=== PATIENT | male | born 1995 | race Caucasian/White ===

== ENCOUNTER 2017-09-19 08:56 | Emergency (ER) | payer MEDICAID, OTHER ==
[2017-09-19 09:04] VITALS: BP 129/77
--- NOTE | 2017-09-19 09:12 | ED Physician Documentation ---
PD HPI URI - Stated complaint Stated Complaint: CONGESTED/BILAT EAR PX - Chief complaint Chief Complaint: Resp - History obtained from History obtained from: Patient - History of Present Illness Timing - onset: How many days ago (has had congestion and cough for days, and having ear pain today too.) Timing duration: Days Timing details: Gradual onset, Still present Associated symptoms: Fever, Ear pain, Nasal congestion, Sore throat, Swollen nodes, Dry cough Contributing factors: No: Sick contact Similar symptoms before: Has not had sx before Recently seen: Not recently seen Review of Systems Constitutional: reports: Fever, Chills, Myalgias Ears: reports: Ear pain Nose: reports: Rhinorrhea / runny nose, Congestion Throat: reports: Sore throat Respiratory: reports: Cough GI: denies: Vomiting, Diarrhea Skin: denies: Rash PD PAST MEDICAL HISTORY - Past Medical History Respiratory: Asthma - Past Surgical History Past Surgical History: No - Present Medications Home Medications: Ambulatory Orders Medication Instructions Recorded Confirmed Benzonatate [Tessalon] 100 mg PO TID PRN #25 capsule 09/19/17 Cephalexin [Keflex] 500 mg PO TID #20 capsule 09/19/17 Dexamethasone [Decadron] 4 mg PO DAILY #5 tablet 09/19/17 - Allergies Allergies/Adverse Reactions: Allergies Allergy/AdvReac Type Severity Reaction Status Date / Time No Known Drug Allergies Allergy Verified 09/19/17 09:04 - Social History Does the pt smoke?: Yes Smoking Status: Current some day smoker Does the pt drink ETOH?: Yes Does the pt have substance abuse?: Yes - Immunizations Immunizations are current?: Yes - POLST Patient has POLST: No PD ED PE NORMAL - General General: Alert and oriented X 3, No acute distress, Well developed/nourished - HEENT HEENT: Moist mucous membranes. No: Ears normal (left is good; right showing redness and bulging. Some wax in both ears but still can see to TMs. ) - Neck Neck: Supple, no meningeal sign, Other (mild anterior adenopathy) - Cardiac Cardiac: RRR, No murmur - Respiratory Respiratory: Clear bilaterally - Abdomen Abdomen: Soft, Non tender - Back Back: No CVA TTP - Derm Derm: Normal color, Warm and dry - Neuro Neuro: Alert and oriented X 3, No motor deficit, Normal speech Results - Vitals Vitals: Vital Signs - 24 hr 09/19/17 09:00 Temperature 36.9 C Heart Rate 86 Respiratory 14 Rate Blood Pressure 129/77 O2 Saturation 97 Oxygen O2 Source Room air PD MEDICAL DECISION MAKING - ED course Complexity details: considered differential, d/w patient Departure - Departure Disposition: 01 Home, Self Care Clinical Impression: Otitis media Qualifiers: Otitis media type: suppurative Chronicity: acute Laterality: right Recurrence: not specified as recurrent Spontaneous tympanic membrane rupture: without spontaneous rupture Qualified Code(s): H66.001 - Acute suppurative otitis media without spontaneous rupture of ear drum, right ear Upper respiratory infection Qualifiers: URI type: unspecified URI Qualified Code(s): J06.9 - Acute upper respiratory infection, unspecified Condition: Stable Record reviewed to determine appropriate education?: Yes Instructions: ED Upper Resp Infec Abx Tx, ED Otitis Media Acute Adult Prescriptions: Benzonatate [Tessalon] 100 mg PO TID PRN #25 capsule PRN Reason: Cough Cephalexin [Keflex] 500 mg PO TID #20 capsule Dexamethasone [Decadron] 4 mg PO DAILY #5 tablet Comments: Much of her symptoms are likely viral. However the right ear is significantly red and looks like a distinct infection. This is more commonly bacterial. Drink lots of fluids. Tylenol or ibuprofen if needed for fevers or pains. Decadron anti-inflammatory steroid for 5 more days will help inflammation and discomfort. Cephalexin antibiotic for the infection. Use Tessalon if needed for cough. Recheck if not improving over the next few days. Discharge Date/Time: 09/19/17 10:06
[2017-09-19] MEDS ORDERED: ACETAMINOPHEN 325 MG TABLET PO STA (09:41)
[2017-09-19] MEDS ORDERED: DEXAMETHASONE 10 MG/ML VIAL PO STA (09:41)
[2017-09-19] MEDS ORDERED: cephALEXin 250 MG CAPSULE PO STA (09:41)
[2017-09-19] MEDS ORDERED: CHERRY SYRUP 10 ML UDC PO ONE (10:11)
== END 2017-09-19 10:06 | disposition home or self-care (01) ==
LOC: ED 08:56
DX: H66.001 Acute suppurative otitis media without spontaneous rupture of ear drum, right ear (principal); J06.9 Acute upper respiratory infection, unspecified; F17.200 Nicotine dependence, unspecified, uncomplicated
CPT/HCPCS: 99281; 99283; A9270

== ENCOUNTER 2017-09-25 21:40 | Emergency (ER) | payer MEDICAID ==
[2017-09-25 21:49] VITALS: BP 138/74
[2017-09-25] MEDS ORDERED: AMOX/CLAV 875 MG/125 MG TABLET PO STA (22:10)
--- NOTE | 2017-09-25 22:12 | ED Physician Documentation ---
History of Present Illness - Stated complaint Stated Complaint: SINUS CONGESTION - Chief complaint Chief Complaint: General - History obtained from History obtained from: Patient - History of Present Illness Timing: Other (He says he been congested his whole life but it has been worse over the last 4 months with bilateral sinus and ear pain for the last couple weeks. No fevers. He was seen here and started on Keflex and Decadron and these no better but is not any worse either. He has a lot of pressure when he bends over. There is no visual difficulty.) Review of Systems Constitutional: denies: Fever, Chills Ears: reports: Ear pain, Drainage/discharge. denies: Loss of hearing Nose: reports: Rhinorrhea / runny nose, Congestion, Sinus pressure / pain. denies: Epistaxis Throat: reports: Sore throat Cardiac: denies: Chest pain / pressure, Palpitations PD PAST MEDICAL HISTORY - Past Medical History Past Medical History: Yes Respiratory: Asthma - Past Surgical History Past Surgical History: No - Present Medications Home Medications: Ambulatory Orders Medication Instructions Recorded Confirmed Benzonatate [Tessalon] 100 mg PO TID PRN #25 capsule 09/19/17 Cephalexin [Keflex] 500 mg PO TID #20 capsule 09/19/17 Dexamethasone [Decadron] 4 mg PO DAILY #5 tablet 09/19/17 Amox/Clav 875/125 [Augmentin] 1 each PO Q12H #20 tablet 09/25/17 Guaifenesin/Pseudoephedrne HCl 1 each PO BID PRN #20 tab.er.12h 09/25/17 [Mucinex D ER 600-60 mg Tablet] Mometasone Furoate [Nasonex] 1 spray NS BID #1 spray.pump 09/25/17 - Allergies Allergies/Adverse Reactions: Allergies Allergy/AdvReac Type Severity Reaction Status Date / Time No Known Drug Allergies Allergy Verified 09/25/17 21:49 - Social History Does the pt smoke?: No Smoking Status: Never smoker Does the pt drink ETOH?: Yes Does the pt have substance abuse?: Yes Substance Use and Type: Marijuana - Immunizations Immunizations are current?: Yes - POLST Patient has POLST: No PD ED PE NORMAL - Vitals Vital signs reviewed: Yes - General General: Alert and oriented X 3, No acute distress - HEENT HEENT: Pharynx benign, Other (Bilateral otitis media, cerumen impaction on the left which was manually disimpacted.) - Neck Neck: Supple, no meningeal sign, No bony TTP - Derm Derm: No rash - Neuro Neuro: Alert and oriented X 3, supervisor general 2-12 intact, Normal speech Results - Vitals Vitals: Vital Signs - 24 hr 09/25/17 21:44 Temperature 36.7 C Heart Rate 71 Respiratory 18 Rate Blood Pressure 138/74 H O2 Saturation 98 Oxygen O2 Source Room air Departure - Departure Disposition: Home, Self Care Clinical Impression: Otitis media Qualifiers: Otitis media type: suppurative Chronicity: acute Laterality: bilateral Recurrence: not specified as recurrent Spontaneous tympanic membrane rupture: without spontaneous rupture Qualified Code(s): H66.003 - Acute suppurative otitis media without spontaneous rupture of ear drum, bilateral Condition: Good Record reviewed to determine appropriate education?: Yes Instructions: ED Otitis Media Acute Adult Prescriptions: Amox/Clav 875/125 [Augmentin] 1 each PO Q12H #20 tablet Guaifenesin/Pseudoephedrne HCl [Mucinex D ER 600-60 mg Tablet] 1 each PO BID PRN #20 tab.er.12h PRN Reason: congestion Mometasone Furoate [Nasonex] 1 spray NS BID #1 spray.pump Comments: If not better in a week, follow-up with an ear nose and throat doctor, the closest is in [place], the number there is [phone] Your blood pressure was elevated today on check into the emergency department. This does not mean that you have hypertension, it is a common phenomenon to come to the emergency department and have elevated blood pressure. I recommend that you see your primary care physician within the week to have it rechecked when you are feeling better.
== END 2017-09-25 22:22 | disposition home or self-care (01) ==
LOC: ED 21:40
DX: H66.003 Acute suppurative otitis media without spontaneous rupture of ear drum, bilateral (principal); H61.22 Impacted cerumen, left ear; R03.0 Elevated blood-pressure reading, without diagnosis of hypertension
CPT/HCPCS: 99283; A9270

== ENCOUNTER 2017-10-04 22:49 | Emergency (ER) | payer MEDICAID ==
[2017-10-04 23:04] VITALS: BP 128/73
[2017-10-04 23:49] LABS: BILIRUBIN,URINE NEGATIVE (NEGATIVE); GLUCOSE, URINE (UA) NEGATIVE (NEGATIVE); KETONES,URINE (UA) NEGATIVE (NEGATIVE); LEUKOCYTE ESTERASE, URINE NEGATIVE (NEGATIVE); NITRITE,URINE NEGATIVE (NEGATIVE); OCCULT BLOOD,URINE NEGATIVE (NEGATIVE); PROTEIN,URINE NEGATIVE (NEGATIVE); UROBILINOGEN,URINE 0.2 (NORMAL) E.U./dL (NORMAL)
[2017-10-04 23:55] LABS: CLARITY,URINE CLEAR (CLEAR)
--- NOTE | 2017-10-05 00:38 | ED Physician Documentation ---
PD HPI MALE - Stated complaint Stated Complaint: MALE - Chief complaint Chief Complaint: General - History obtained from History obtained from: Patient - History of Present Illness Timing - onset: How many weeks ago (1) Timing - details: Intermittant, Waxing and waning Associated symptoms: Dysuria, Unable to urinate. No: Urinary frequency, Genital sore / lesion, Testiclar pain, Scrotal swelling PD HPI MALE CONTRIB FACTORS: Sexually active, Homosexual Similar symptoms before: No diagnosis Recently seen: Not recently seen - Additional information Additional information: Patient is a 22 year old male with no significant past medical history who is presenting to the emergency department for occasional dysuria. patient states that it has been off and on for the last few weeks. patient states that he is sexually active and did have anal intercourse without protection about 3 weeks prior. Patient denies any penile discharge or lesions. Review of Systems Constitutional: denies: Fever, Chills Eyes: reports: Reviewed and negative Ears: reports: Reviewed and negative Nose: reports: Reviewed and negative Throat: reports: Reviewed and negative Cardiac: reports: Reviewed and negative Respiratory: reports: Reviewed and negative GI: denies: Abdominal Pain, Nausea, Vomiting : reports: Dysuria, Hesitancy. denies: Discharge Skin: denies: Rash, Lesions Musculoskeletal: reports: Reviewed and negative Neurologic: reports: Reviewed and negative Immunocompromised: denies: Immunocompromised PD PAST MEDICAL HISTORY - Past Medical History Past Medical History: Yes Cardiovascular: None Respiratory: Asthma Neuro: None Endocrine/Autoimmune: None GI: None : None HEENT: None Psych: None Musculoskeletal: None Derm: None - Past Surgical History Past Surgical History: No - Present Medications Home Medications: Ambulatory Orders Medication Instructions Recorded Confirmed Benzonatate [Tessalon] 100 mg PO TID PRN #25 capsule 09/19/17 Cephalexin [Keflex] 500 mg PO TID #20 capsule 09/19/17 Dexamethasone [Decadron] 4 mg PO DAILY #5 tablet 09/19/17 Amox/Clav 875/125 [Augmentin] 1 each PO Q12H #20 tablet 09/25/17 Guaifenesin/Pseudoephedrne HCl 1 each PO BID PRN #20 tab.er.12h 09/25/17 [Mucinex D ER 600-60 mg Tablet] Mometasone Furoate [Nasonex] 1 spray NS BID #1 spray.pump 03/07/18 - Allergies Allergies/Adverse Reactions: Allergies Allergy/AdvReac Type Severity Reaction Status Date / Time No Known Drug Allergies Allergy Verified 10/04/17 23:04 - Social History Does the pt smoke?: No Smoking Status: Never smoker Does the pt drink ETOH?: Yes Does the pt have substance abuse?: Yes - Immunizations Immunizations are current?: Yes - POLST Patient has POLST: No PD ED PE NORMAL - Vitals Vital signs reviewed: Yes - General General: Alert and oriented X 3, No acute distress - HEENT HEENT: Atraumatic, PERRL - Neck Neck: Supple, no meningeal sign - Cardiac Cardiac: RRR - Respiratory Respiratory: No respiratory distress - Abdomen Abdomen: Normal bowel sounds - Male Male : Pipe Layer Helper present - Derm Derm: Normal color, Warm and dry, No rash - Extremities Extremities: No deformity - Neuro Neuro: Alert and oriented X 3, No motor deficit, No sensory deficit, Normal speech Eye Opening: Spontaneous PD ED PE EXPANDED - Male Male : Circumcised, Normal lie/cremastaric, Tenderness, Cultures sent. No: Skin lesions Results - Vitals Vitals: Vital Signs - 24 hr 10/04/17 23:02 Temperature 36.7 C Heart Rate 55 L Respiratory 16 Rate Blood Pressure 128/73 O2 Saturation 97 Oxygen O2 Source Room air - Labs Labs: Laboratory Tests 10/04/17 23:40 Urine Color YELLOW Urine Clarity CLEAR Urine pH 6.0 Ur Specific [place] 1.020 Urine Protein NEGATIVE Urine Glucose (UA) NEGATIVE Urine Ketones NEGATIVE Urine Occult Blood NEGATIVE Urine Nitrite NEGATIVE Urine Bilirubin NEGATIVE Urine Urobilinogen 0.2 (NORMAL) Ur Leukocyte Esterase NEGATIVE Ur Microscopic Review NOT INDICATED Urine Culture Comments NOT INDICATED PD MEDICAL DECISION MAKING - ED course Complexity details: reviewed old records, reviewed results, re-evaluated patient , considered differential, d/w patient ED course: Patient was seen and examined at bedside. urine was collected. patient had no urinary tract infection. Cultures were sent. Patient was given the option of empiric treatment but stated he wanted to wait. Patient required no further work up and was stable for discharge with outpatient follow up. Departure - Departure Disposition: 01 Home, Self Care Clinical Impression: Dysuria Condition: Good Instructions: ED Dysuria Uncertain Cause Follow-Up: primary,care provider [Other] Comments: Your diagnostics today were within normal limits. There is no sign of urinary tract infection but your culture results are still pending. You should contact the hospital in three days for the culture results. You should refrain from sexual intercourse until you have the culture results. You can take motrin, tylenol or azo for pain. You may return to the emergency department at any time for new, worsening or uncontrollable symptoms. Discharge Date/Time: 10/05/17 01:05
== END 2017-10-05 01:05 | disposition home or self-care (01) ==
LOC: ED 22:49
DX: R30.0 Dysuria (principal); R39.11 Hesitancy of micturition
CPT/HCPCS: 81001; 81003; 87086; 87491; 87591; 99283

== ENCOUNTER 2018-03-14 13:57 | Emergency (ER) | payer SELFPAY ==
[2018-03-14 14:18] VITALS: BP 122/75
--- NOTE | 2018-03-14 14:58 | ED Physician Documentation ---
PD HPI SKIN - Stated complaint Stated Complaint: ABD/BACK/LEG RASH - Chief complaint Chief Complaint: General - History obtained from History obtained from: Patient - History of Present Illness Timing - onset: How many days ago (2) Timing - duration: Days (2) Timing - details: Gradual onset, Still present Location: Abdomen, RLE, LLE Quality / character: Itchy, Crusted Associated symptoms: No: Fever, Myalgias, Joint pain, Headache, Facial swelling , Dyspnea, Abd pain, N/V/D, Urinary sx Contributing factors: Exposed to medication (finished augmentin 5 days ago) Similar symptoms before: Has not had sx before Recently seen: Clinic - Additional information Additional information: 23-year-old male who is been put on a course of Augmentin recently for a tooth infection finished the Augmentin 5 days ago and over the last 2 days he has developed a rash over his trunk and today over his legs. 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 He does not have this rash over his chest back neck face or calves. He does have a sore throat and he has had an issue with otitis media for the past year. He does not believe he is ever had the infection completely resolved. Review of Systems Constitutional: denies: Fever, Chills, Myalgias Eyes: denies: Decreased vision Ears: reports: Ear pain Nose: reports: Rhinorrhea / runny nose, Congestion Throat: reports: Sore throat Cardiac: denies: Chest pain / pressure, Palpitations Respiratory: reports: Cough. denies: Dyspnea GI: denies: Abdominal Pain, Nausea, Vomiting : denies: Dysuria, Frequency Skin: reports: Rash Musculoskeletal: denies: Neck pain, Back pain, Extremity pain Neurologic: denies: Generalized weakness, Focal weakness, Numbness PD PAST MEDICAL HISTORY - Past Medical History Cardiovascular: None Respiratory: Asthma Endocrine/Autoimmune: None GI: None : None HEENT: None Psych: None Musculoskeletal: None Derm: None - Past Surgical History Past Surgical History: No - Present Medications Home Medications: Ambulatory Orders Medication Instructions Recorded Confirmed Azithromycin [Zithromax] 250 mg PO DAILY #6 tablet 03/14/18 - Allergies Allergies/Adverse Reactions: Allergies Allergy/AdvReac Type Severity Reaction Status Date / Time No Known Drug Allergies Allergy Verified 03/14/18 14:16 - Social History Does the pt smoke?: No Smoking Status: Never smoker Does the pt drink ETOH?: Yes Does the pt have substance abuse?: Yes - Immunizations Immunizations are current?: Yes - POLST Patient has POLST: No PD ED PE NORMAL - Vitals Vital signs reviewed: Yes (normal ) - General General: Alert and oriented X 3, No acute distress, Well developed/nourished - HEENT HEENT: Atraumatic, PERRL, EOMI, Other (There is cerumen bilaterally and this is removed to reveal inflamation in the attic bilaterally ) - Neck Neck: Supple, no meningeal sign, No bony TTP - Cardiac Cardiac: RRR, No murmur - Respiratory Respiratory: No respiratory distress, Clear bilaterally - Abdomen Abdomen: Soft, Non tender - Derm Derm: Normal color, Warm and dry, Other (There is a non-specific rash/ irritation to the skin on the lateral aspect of the abdomen bilaterally and over the anterior thighs. The distribution is consistent with a contact dermatitis. ) - Extremities Extremities: No deformity, No edema - Neuro Neuro: Alert and oriented X 3, television tube inspector 2-12 intact, No motor deficit, No sensory deficit, Normal speech Eye Opening: Spontaneous Motor: Obeys Commands Verbal: Oriented GCS Score: 15 - Psych Psych: Normal mood, Normal affect Results - Vitals Vitals: Vital Signs - 24 hr 03/14/18 14:14 Temperature 36.8 C Heart Rate 58 L Respiratory 18 Rate Blood Pressure 122/75 O2 Saturation 98 Oxygen O2 Source Room air PD MEDICAL DECISION MAKING - ED course Complexity details: reviewed old records, reviewed results, re-evaluated patient , considered differential, d/w patient ED course: 23-year-old male with a history of recurrent otitis media has developed a cough and congestion and has otitis again today. He is complaining of a sore throat as well. He also has a rash over his torso in a distribution that is consistent with a contact dermatitis. 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 I suspect this is the etiology of this nonspecific dermatitis he has. He has been exposed to medication in the form of Augmentin and he has taken this medication previously and he took a full course and several days after the full course developed this rash and I suspect does not have a role in the rash but the patient has - Sepsis Event Vital Signs: Vital Signs - 24 hr 03/14/18 14:14 Temperature 36.8 C Heart Rate 58 L Respiratory 18 Rate Blood Pressure 122/75 O2 Saturation 98 Oxygen O2 Source Room air Departure - Departure Disposition: 01 Home, Self Care Clinical Impression: Otitis media Qualifiers: Otitis media type: suppurative Chronicity: acute Laterality: bilateral Recurrence: not specified as recurrent Spontaneous tympanic membrane rupture: without spontaneous rupture Qualified Code(s): H66.003 - Acute suppurative otitis media without spontaneous rupture of ear drum, bilateral Contact dermatitis Qualifiers: Contact dermatitis type: irritant Contact dermatitis trigger: other trigger Qualified Code(s): L24.89 - Irritant contact dermatitis due to other agents Condition: Stable Instructions: ED Dermatitis Contact, ED Otitis Media Acute Adult Follow-Up: [facility] [Provider Group] Prescriptions: Azithromycin [Zithromax] 250 mg PO DAILY #6 tablet Discharge Date/Time: 03/14/18 15:27
[2018-03-14] MEDS ORDERED: DEXAMETHASONE 10 MG/ML VIAL PO STA (15:20)
== END 2018-03-14 15:27 | disposition home or self-care (01) ==
LOC: ED 13:57
DX: L24.89 Irritant contact dermatitis due to other agents (principal); H66.003 Acute suppurative otitis media without spontaneous rupture of ear drum, bilateral; H61.23 Impacted cerumen, bilateral
CPT/HCPCS: 99283

== ENCOUNTER 2018-04-12 14:30 | Emergency (ER) | payer SELFPAY ==
[2018-04-12 14:40] VITALS: BP 147/92
[2018-04-12] MEDS ORDERED: cephALEXin 250 MG CAPSULE PO STA (15:54)
[2018-04-12] MEDS ORDERED: IBUPROFEN 800 MG TABLET PO STA (15:54)
[2018-04-12] MEDS ORDERED: SULFAMETH/TRIMETH DS 800/160 MG TABLET PO STA (15:54)
--- NOTE | 2018-04-12 15:57 | ED Physician Documentation ---
History of Present Illness - Stated complaint Stated Complaint: MALE /MASS/PX - Chief complaint Chief Complaint: General - History obtained from History obtained from: Patient, Family - History of Present Illness Timing: Today Pain level max: 8 Pain level now: 7 - Additonal information Additional information: Patient is a 23-year-old male who presents to the emergency department with several complaints. The first is a swelling in in the perineal area for the past week. States it is worse with palpation and worse with sitting down. No drainage. He also complains of a burning pain to his scrotum for the past week as well. Review of Systems Constitutional: denies: Fever, Chills Ears: denies: Ear pain Nose: denies: Rhinorrhea / runny nose, Congestion Respiratory: denies: Cough GI: denies: Abdominal Pain, Nausea, Vomiting, Diarrhea : reports: Other (states not sexually active). denies: Dysuria, Frequency, Hesitancy, Testicular pain, Testicular mass Skin: denies: Rash Musculoskeletal: denies: Neck pain, Back pain Neurologic: denies: Headache PD PAST MEDICAL HISTORY - Past Medical History Cardiovascular: None Respiratory: Asthma Neuro: None Endocrine/Autoimmune: None GI: None : Other HEENT: Other Psych: None Musculoskeletal: None Derm: None Other Past Medical History: Chronic ear infection. Epididemitis - Past Surgical History Past Surgical History: No - Present Medications Home Medications: Ambulatory Orders Medication Instructions Recorded Confirmed Bacitracin Zinc Oint 1 applic TOP BID #1 tube 04/12/18 Cephalexin [Keflex] 500 mg PO Q6H #28 capsule 04/12/18 Ibuprofen [Motrin] 800 mg PO Q8H PRN #30 tablet 04/12/18 Sulfamethox/Trimeth 800/160 1 each PO BID #14 tablet 04/12/18 [Bactrim Ds 800/160] - Allergies Allergies/Adverse Reactions: Allergies Allergy/AdvReac Type Severity Reaction Status Date / Time No Known Drug Allergies Allergy Verified 04/12/18 14:37 - Social History Does the pt smoke?: No Smoking Status: Former smoker Does the pt drink ETOH?: No Does the pt have substance abuse?: No Substance Use and Type: Marijuana - Immunizations Immunizations are current?: Yes - POLST Patient has POLST: No PD ED PE NORMAL - Vitals Vital signs reviewed: Yes - General General: Alert and oriented X 3, No acute distress - HEENT HEENT: Moist mucous membranes - Neck Neck: Supple, no meningeal sign - Cardiac Cardiac: RRR, Strong equal pulses - Respiratory Respiratory: No respiratory distress, Clear bilaterally - Abdomen Abdomen: Soft, Non tender, Non distended - Male Male : Other (abrasions to scrotum. no signs of infection. Appear to be secondary to shaving. ) - Rectal Rectal: Other (1cm, round, erythematous area on L gluteal fold, inferior to rectum. no rectal tenderness. no fluctuance.) - Derm Derm: Warm and dry - Neuro Neuro: Alert and oriented X 3 - Psych Psych: Normal mood, Normal affect Results - Vitals Vitals: Vital Signs - 24 hr 04/12/18 14:33 Temperature 36.4 C L Heart Rate 83 Respiratory 20 Rate Blood Pressure 147/92 H O2 Saturation 100 Oxygen O2 Source Room air PD MEDICAL DECISION MAKING - ED course Complexity details: considered differential, d/w patient ED course: Patient is a 23-year-old male who presents to the emergency department with a left gluteal cellulitis, possible early abscess. Not drainable at this time. Will place on antibiotics for this. Also has abrasions over the scrotum. Will place on bacitracin for this. He is well-appearing, nontoxic. Afebrile. No evidence of perirectal abscess. Patient counseled regarding signs and symptoms for which I believe and urgent re-evaluation would be necessary. Patient with good understanding of and agreement to plan and is comfortable going home at this time This document was made in part using voice recognition software. While efforts are made to proofread this document, sound alike and grammatical errors may occur. - Sepsis Event Vital Signs: Vital Signs - 24 hr 04/12/18 14:33 Temperature 36.4 C L Heart Rate 83 Respiratory 20 Rate Blood Pressure 147/92 H O2 Saturation 100 Oxygen O2 Source Room air Departure - Departure Disposition: 01 Home, Self Care Clinical Impression: Abrasion Cellulitis Qualifiers: Site of cellulitis: buttock Qualified Code(s): L03.317 - Cellulitis of buttock Condition: Good Instructions: ED Abrasion, ED Infec Skin Cellulitis Follow-Up: your,doctor in 1 week [Other] Prescriptions: Bacitracin Zinc Oint 1 applic TOP BID #1 tube Cephalexin [Keflex] 500 mg PO Q6H #28 capsule Ibuprofen [Motrin] 800 mg PO Q8H PRN #30 tablet PRN Reason: PAIN &/OR FEVER Sulfamethox/Trimeth 800/160 [Bactrim Ds 800/160] 1 each PO BID #14 tablet Comments: Return if you worsen. Take all antibiotics until gone. This should improve over the next few days. Discharge Date/Time: 04/12/18 16:12
== END 2018-04-12 16:12 | disposition home or self-care (01) ==
LOC: ED 14:30
DX: S30.813A Abrasion of scrotum and testes, initial encounter (principal); L03.317 Cellulitis of buttock; Z87.891 Personal history of nicotine dependence; X58.XXXA Exposure to other specified factors, initial encounter
CPT/HCPCS: 99283; A9270

== ENCOUNTER 2019-09-05 13:51 | Emergency (ER) | payer OTHER ==
[2019-09-05 14:00] VITALS: BP 129/82
[2019-09-05] MEDS ORDERED: TETANUS/DIPHTHERIA/PERTUSSIS 0.5 ML SYRINGE IM ONE (14:07)
--- NOTE | 2019-09-05 14:10 | ED Physician Documentation ---
History of Present Illness - Stated complaint Stated Complaint: L THUMB LAC - Chief complaint Chief Complaint: Laceration - History obtained from History obtained from: Patient - History of Present Illness Timing: Today Pain level max: 0 Pain level now: 0 - Additonal information Additional information: 24-year-old male, right-handed presents with a laceration to the left thumbnail while working cutting up chicken. No active bleeding. Does not know his last tetanus shot. Nothing makes it better or worse. Review of Systems Constitutional: denies: Fever PD PAST MEDICAL HISTORY - Past Medical History Past Medical History: Yes Cardiovascular: None Respiratory: Asthma Neuro: None Endocrine/Autoimmune: None GI: None : Other HEENT: Other Psych: None Musculoskeletal: None Derm: None - Past Surgical History Past Surgical History: No - Present Medications Home Medications: Ambulatory Orders Medication Instructions Recorded Confirmed Bacitracin Zinc Oint 1 applic TOP BID #1 tube 04/12/18 Cephalexin [Keflex] 500 mg PO Q6H #28 capsule 04/12/18 Ibuprofen [Motrin] 800 mg PO Q8H PRN #30 tablet 04/12/18 Sulfamethox/Trimeth 800/160 1 each PO BID #14 tablet 04/12/18 [Bactrim Ds 800/160] - Allergies Allergies/Adverse Reactions: Allergies Allergy/AdvReac Type Severity Reaction Status Date / Time No Known Drug Allergies Allergy Verified 09/05/19 14:00 - Social History Does the pt smoke?: No Smoking Status: Never smoker Does the pt drink ETOH?: No Does the pt have substance abuse?: No - Immunizations Immunizations are current?: Yes - POLST Patient has POLST: No PD ED PE NORMAL - Vitals Vital signs reviewed: Yes - General General: Alert and oriented X 3, No acute distress - Derm Derm: Warm and dry - Extremities Extremities: Other (1 cm laceration to the left thumbnail, approximately mid point. Not actively bleeding. Neurovascularly intact) - Neuro Neuro: Alert and oriented X 3 Results - Vitals Vitals: Vital Signs - 24 hr 09/05/19 13:56 Temperature 36.6 C Heart Rate 60 Respiratory 18 Rate Blood Pressure 129/82 H O2 Saturation 97 Oxygen O2 Source Room air Procedures - Laceration (location) Left thumbnail Length in cm: 1 Wound type: Into subcut fat, Clean Neurovascular status: Sensory intact, Motor intact, Vascular intact Tendon involvement: Tendon intact Wound Preparation: Irrigated copiously NS Skin layer closure: Dermabond Other: Patient tolerated well, No complications, Neurovascular intact, Tetanus booster given (Tdap) Complexity: Simple PD MEDICAL DECISION MAKING - ED course Complexity details: reviewed results, re-evaluated patient, considered differential, d/w patient ED course: 24-year-old male presents to the emergency department with a left thumbnail laceration. Repaired with Dermabond. Tolerated well. Tdap given. Warnings of infection and instructions on wound care given at bedside. Also counseled on how to minimize scarring. Patient counseled regarding signs and symptoms for which I believe and urgent re-evaluation would be necessary. Patient with good understanding of and agreement to plan and is comfortable going home at this time This document was made in part using voice recognition software. While efforts are made to proofread this document, sound alike and grammatical errors may occur. Departure - Departure Disposition: 01 Home, Self Care Clinical Impression: Thumb laceration Qualifiers: Encounter type: initial encounter Damage to nail status: with damage Foreign body presence: unspecified Laterality: left Qualified Code(s): S61.112A - Laceration without foreign body of left thumb with damage to nail, initial encounter Condition: Good Instructions: ED Laceration Hand Follow-Up: your,doctor in 1 week for a recheck [Other] Comments: Keep the wound clean. Return if you worsen. The nail should grow out and should not cause any issues. Return if you notice redness, swelling or drainage from the wound. Do not apply any antibiotic ointment as this may dissolve the glue.
== END 2019-09-05 14:33 | disposition home or self-care (01) ==
LOC: ED 13:51
DX: S61.112A Laceration without foreign body of left thumb with damage to nail, initial encounter (principal); W26.0XXA Contact with knife, initial encounter; Y93.G1 Activity, food preparation and clean up; Y92.89 Other specified places as the place of occurrence of the external cause; Y99.0 Civilian activity done for income or pay
CPT/HCPCS: 12001; 90471; 99283

== ENCOUNTER 2019-11-01 12:17 | Emergency (ER) | payer MEDICAID ==
--- NOTE | 2019-11-01 12:34 | ED Physician Documentation ---
PD HPI CHEST PAIN - Stated complaint Stated Complaint: CHEST PX - Chief complaint Chief Complaint: Cardiac - History obtained from History obtained from: Patient - History of Present Illness Timing - onset: How many weeks ago (2) Timing - onset during: Light activity (2 weeks ago on October 19 he noted onset of some lower chest to epigastric area pain that was sharp initially and towards the left chest. It did not worsen with breathing. It had some worsening with movement forward of his shoulders. He did notice some discomfort with eating at times. He noted the next couple of weeks having a lot of belching and easy satiety and nausea with eating. He did not have any vomiting per se. He did not notice any dark stool. He has had more consistent pain in the epigastric to anterior chest area the last day or 2. He is anxious about it. He has noticed it a little bit worse when laying down at night the last few nights.) Timing - duration: Weeks (2) Timing - details: Gradual onset, Still present, Waxing and waning (He states it has been present every day over the last couple of weeks but not necessarily noticing it all day.) Quality: Aching, Pain Location: Substernal, Left chest, Epigastric Radiation: No: Jaw, Neck, Back Improved by: No: Rest Worsened by: Eating, Movement, Position (worse lying down). No: Exertion, Inspiration Associated symptoms: Shortness of air, Nausea. No: Diaphoresis, Vomiting, Feeling faint / dizzy, Palpitations Similar symptoms before: Has not had sx before Recently seen: Not recently seen Review of Systems Constitutional: denies: Fever, Chills, Myalgias Nose: denies: Rhinorrhea / runny nose, Congestion Throat: denies: Sore throat Cardiac: reports: Chest pain / pressure. denies: Palpitations, Calf pain Respiratory: reports: Dyspnea. denies: Cough, Wheezing GI: reports: Nausea. denies: Vomiting, Diarrhea, Bloody / black stool Neurologic: reports: Generalized weakness. denies: Focal weakness, Numbness Psychiatric: reports: Anxiety, Insomnia. denies: Depressed, Suicidal Endocrine: denies: Easy bruising / bleeding Immunocompromised: denies: Immunocompromised PD PAST MEDICAL HISTORY - Past Medical History Cardiovascular: None Respiratory: Asthma Neuro: None Endocrine/Autoimmune: None GI: None : Other HEENT: Other Psych: None Musculoskeletal: None Derm: None - Past Surgical History Past Surgical History: No - Present Medications Home Medications: Ambulatory Orders Medication Instructions Recorded Confirmed Famotidine 20 mg PO DAILY #30 tablet 11/01/19 LORazepam [Ativan] 1 mg PO BID PRN #10 tablet 11/01/19 Lidocaine Viscous 2% [Xylocaine 5 ml PO Q4H PRN #100 ml 11/01/19 Viscous 2%] Loratadine [Claritin] 10 mg PO DAILY 11/01/19 11/01/19 Ondansetron Odt [Zofran] 4 mg TL Q6H PRN #15 tablet 11/01/19 - Allergies Allergies/Adverse Reactions: Allergies Allergy/AdvReac Type Severity Reaction Status Date / Time No Known Drug Allergies Allergy Verified 11/01/19 12:26 - Living Situation Living Situation: reports: With spouse/s.o. Living Arrangement: reports: At home - Social History Does the pt smoke?: Yes Smoking Status: Former smoker (quit 2 weeks ago after onset of the pain.) Does the pt drink ETOH?: No Does the pt have substance abuse?: No - Immunizations Immunizations are current?: Yes - POLST Patient has POLST: No PD ED PE NORMAL - Vitals Vital signs reviewed: Yes - General General: Alert and oriented X 3, Well developed/nourished, Other (He appears very anxious.) - HEENT HEENT: Pharynx benign - Neck Neck: Supple, no meningeal sign, No adenopathy - Cardiac Cardiac: RRR, No murmur - Respiratory Respiratory: Clear bilaterally, Other (no chestwall tenderness) - Abdomen Abdomen: Normal bowel sounds, Soft, Non distended, No organomegaly, Other (Tender in the epigastric area without any guarding masses or percussion tenderness. The right upper quadrant itself is not really tender.) - Derm Derm: Normal color, Warm and dry - Extremities Extremities: Normal ROM s pain, No edema, No calf tenderness / cord - Neuro Neuro: Alert and oriented X 3, No motor deficit, Normal speech Results - Vitals Vitals: Vital Signs - 24 hr 11/01/19 11/01/19 12:20 13:23 Temperature 36.3 C L 36.3 C L Heart Rate 71 75 Respiratory 18 18 Rate Blood Pressure 132/56 H 140/98 H O2 Saturation 98 99 Oxygen O2 Source Room air - EKG (time done) 12:22 Rate: Rate (enter#) (58) Rhythm: NSR [place]: Normal Intervals: Normal [place] QRS: Normal Ischemia: Normal ST segments, ST elevation c/w repol (mild). No: ST elevation c/w ischemia, ST depression Compare to prior EKG: Old EKG unavailable - Labs Labs: Laboratory Tests 11/01/19 11/01/19 13:10 13:10 WBC 6.0 RBC 5.19 Hgb 15.5 Hct 45.9 MCV 88.4 MCH 29.9 MCHC 33.8 RDW 12.6 Plt Count 147 MPV 9.9 Neut # (Auto) 4.2 Lymph # (Auto) 1.3 L [place] # (Auto) 0.5 Eos # (Auto) 0.1 Baso # (Auto) 0.0 Absolute Nucleated RBC 0.00 Nucleated RBC % 0.0 Sodium 139 Potassium 3.9 Chloride 103 Carbon Dioxide 25 Anion Gap 11.0 BUN 19 Creatinine 0.8 Estimated GFR (MDRD) 119 Glucose 104 H Calcium 9.7 Total Bilirubin 1.0 AST 24 ALT 35 Alkaline Phosphatase 47 Total Protein 8.3 H Albumin 4.9 Globulin 3.4 Albumin/Globulin Ratio 1.4 Lipase 22 - Rads (name of study) chest xray Radiology: Prelim report reviewed (no acute lung process), See rad report PD MEDICAL DECISION MAKING - ED course Complexity details: reviewed results, considered differential (The patient is having a lot of belching and some added discomfort with eating and nausea. He is tender in the epigastric area. Is also very anxious. It sounds most likely to be gastritis and some esophagitis. EKG chest x-ray are normal.), d/w patient Departure - Departure Disposition: 01 Home, Self Care Clinical Impression: Epigastric pain, Anxiety Gastritis Qualifiers: Gastritis type: unspecified gastritis Chronicity: acute Gastritis bleeding: without bleeding Qualified Code(s): K29.00 - Acute gastritis without bleeding Condition: Stable Record reviewed to determine appropriate education?: Yes Instructions: ED PUD Vs Gastritis Follow-Up: [facility] [Provider Group] Prescriptions: Famotidine 20 mg PO DAILY #30 tablet Lidocaine Viscous 2% [Xylocaine Viscous 2%] 5 ml PO Q4H PRN #100 ml PRN Reason: Pain LORazepam [Ativan] 1 mg PO BID PRN #10 tablet PRN Reason: Anxiety Ondansetron Odt [Zofran] 4 mg TL Q6H PRN #15 tablet PRN Reason: Nausea / Vomiting Comments: Your EKG chest x-ray and blood tests are normal. No signs of heart irregularity. Your pancreas and liver seem normal on blood test. Your symptoms and exam are consistent with an irritated stomach (gastritis). I would have you use famotidine acid reducing medicine daily as directed. Ondansetron if needed for nausea. Use antacid such as Maalox or Mylanta every 4-6 hours as needed and you can add in some lidocaine to help with the stomach pains in the short-term. Add Tylenol every 4-6 hours if needed for pain. Do not use any anti- inflammatories such as ibuprofen or naproxen. You can use lorazepam once or twice a day as needed for anxiety in the short- term. Recheck if not improving well over the next several days to a week. Discharge Date/Time: 11/01/19 14:13
[2019-11-01] MEDS ORDERED: MAG HYDROX/AL HYDROX/SIMETH 30 ML UDC PO STA (13:00)
[2019-11-01] MEDS ORDERED: ONDANSETRON ODT 4 MG TABLET TL STA (13:00)
[2019-11-01] MEDS ORDERED: LIDOCAINE VISCOUS 2% 15 ML UDC MM STA (13:00)
[2019-11-01] MEDS ORDERED: LORazepam 1 MG TABLET PO STA (13:02)
[2019-11-01 13:17] LABS: BASOPHILS % (AUTO) 0.3 %; EOSINOPHILS # (AUTO) 0.1 10^3/uL (0.0-0.7); HGB - HEMOGLOBIN 15.5 g/dL (14.0-18.0); LYMPHOCYTES # (AUTO) 1.3 10^3/uL (1.5-3.5); LYMPHOCYTES % (AUTO) 21.6 %; MEAN CORPUSCULAR HEMOGLOBIN 29.9 pg (27.0-31.0); MEAN CORPUSCULAR HGB CONC 33.8 g/dL (32.0-36.0); MEAN CORPUSCULAR VOLUME 88.4 fL (80.0-94.0); MEAN PLATELET VOLUME 9.9 fL (7.4-11.4); MONOCYTES # (AUTO) 0.5 10^3/uL (0.0-1.0); MONOCYTES % (AUTO) 7.8 %; NEUTROPHILS # (AUTO) 4.2 10^3/uL (1.5-6.6); PLT - PLATELET COUNT 147 10^3/uL (130-450); RED BLOOD COUNT 5.19 10^6/uL (4.70-6.10); RED CELL DISTRIBUTION WIDTH 12.6 % (12.0-15.0)
[2019-11-01 13:24] VITALS: BP 140/98
[2019-11-01 13:28] LABS: ALBUMIN 4.9 g/dL (3.2-5.5); ALBUMIN/GLOBULIN RATIO 1.4 (1.0-2.2); CALCIUM 9.7 mg/dL (8.5-10.3); CREATININE 0.8 mg/dL (0.6-1.2); TOTAL PROTEIN 8.3 g/dL (6.7-8.2)
--- NOTE | 2019-11-01 14:36 | XRAY Report ---
Reason: chest pain Procedure Date: 11/01/2019 Accession Number: [id number] / [id number] Procedure: XR - Chest 1 View X-Ray CPT Code: 99508 Final Report FULL RESULT: EXAM: CHEST RADIOGRAPHY EXAM DATE: 11/01/2019 01:16 PM. CLINICAL HISTORY: Chest pain. COMPARISON: 12/21/2014 chest radiographs. TECHNIQUE: 1 view. FINDINGS: Lungs/Pleura: No focal opacities evident. No pleural effusion. No pneumothorax. Mediastinum: Within exam limitations, the cardiomediastinal contour is normal. Other: None. IMPRESSION: Normal single view chest. RAD[facility]
== END 2019-11-01 14:13 | disposition home or self-care (01) ==
LOC: ED 12:17
DX: K29.00 Acute gastritis without bleeding (principal); F41.9 Anxiety disorder, unspecified; Z87.891 Personal history of nicotine dependence
CPT/HCPCS: 36415; 71045; 80053; 83690; 85025; 93005; 99284; A9270; J8499; Q0162

== ENCOUNTER 2019-11-08 16:50 | Emergency (ER) | payer MEDICAID ==
--- NOTE | 2019-11-08 17:09 | ED Physician Documentation ---
PD HPI ABD PAIN - Stated complaint Stated Complaint: CHEST PX - Chief complaint Chief Complaint: Abd Pain - History obtained from History obtained from: Patient - History of Present Illness Timing - onset: Other (24-year-old gentleman has had constant sharp chest pain associated with an occasional wheezing and feeling like his heart is beating up into his head and through his ears and his back for the last month or so. He was seen here about a week ago. His work-up was negative. Diagnosed with gastritis and Anxiety. He has been on Ativan, lidocaine, Pepcid without any relief. In fact he feels like all of these medications make him worse.) Review of Systems Ten Systems: 10 systems reviewed and negative Constitutional: reports: Fatigue. denies: Fever, Chills Throat: denies: Dental pain / toothache, Sore throat Cardiac: reports: Chest pain / pressure, Palpitations. denies: Pedal edema, Calf pain Respiratory: reports: Dyspnea. denies: Cough GI: denies: Abdominal Pain PD PAST MEDICAL HISTORY - Past Medical History Cardiovascular: None Respiratory: Asthma Neuro: None Endocrine/Autoimmune: None GI: None : Other HEENT: Other Psych: None Musculoskeletal: None Derm: None - Past Surgical History Past Surgical History: No - Present Medications Home Medications: Ambulatory Orders Medication Instructions Recorded Confirmed LORazepam [Ativan] 1 mg PO BID PRN #10 tablet 11/01/19 Lidocaine Viscous 2% [Xylocaine 5 ml PO Q4H PRN #100 ml 11/01/19 Viscous 2%] Ondansetron Odt [Zofran] 4 mg TL Q6H PRN #15 tablet 11/01/19 Alprazolam [Xanax] 0.5 mg PO TID PRN #15 tablet 11/08/19 Famotidine 40 mg PO DAILY 11/08/19 11/08/19 Mag Hydrox/Aluminum Hyd/Simeth 355 ml PO 11/08/19 [Antacid Anti-Gas Liquid] - Allergies Allergies/Adverse Reactions: Allergies Allergy/AdvReac Type Severity Reaction Status Date / Time No Known Drug Allergies Allergy Verified 11/01/19 12:26 - Social History Does the pt smoke?: Yes Smoking Status: Former smoker (quit 2 weeks ago after onset of the pain.) Does the pt drink ETOH?: No Does the pt have substance abuse?: No - Immunizations Immunizations are current?: Yes - POLST Patient has POLST: No PD ED PE NORMAL - Vitals Vital signs reviewed: Yes - General General: Alert and oriented X 3, Well developed/nourished, Other (He appears slightly hypervigilant and anxious) - HEENT HEENT: PERRL, EOMI - Neck Neck: Supple, no meningeal sign, No bony TTP - Cardiac Cardiac: RRR, No murmur, Other (Tender left costochondral joints) - Respiratory Respiratory: No respiratory distress, Clear bilaterally - Abdomen Abdomen: Non tender - Extremities Extremities: No edema, No calf tenderness / cord - Neuro Neuro: Alert and oriented X 3, Normal speech Results - Vitals Vitals: Vital Signs - 24 hr 11/08/19 11/08/19 11/08/19 16:54 17:26 18:13 Temperature 36.7 C Heart Rate 66 69 80 Respiratory 18 21 Rate Blood Pressure 127/86 H 138/94 H 135/90 H O2 Saturation 100 99 97 Oxygen O2 Source Room air - EKG (time done) 1712 Rate: Rate (enter#) (58) Rhythm: NSR [place]: Normal Intervals: Normal MD QRS: Normal Ischemia: Normal ST segments Compare to prior EKG: Unchanged from prior EKG (from from 11/01/19) Computer interpretation: Agree with computer - Labs Labs: Laboratory Tests 11/08/19 11/08/19 11/08/19 17:10 17:10 17:10 WBC 5.5 RBC 4.99 Hgb 15.5 Hct 43.7 MCV 87.6 MCH 31.1 H MCHC 35.5 RDW 12.4 Plt Count 150 MPV 9.7 Neut # (Auto) 3.5 Lymph # (Auto) 1.5 [place] # (Auto) 0.4 Eos # (Auto) 0.1 Baso # (Auto) 0.0 Absolute Nucleated RBC 0.00 Nucleated RBC % 0.0 Sodium 135 Potassium 3.5 Chloride 100 L Carbon Dioxide 25 Anion Gap 10.0 BUN 18 Creatinine 0.9 Estimated GFR (MDRD) 104 Glucose 82 Calcium 9.2 Total Bilirubin 1.0 AST 20 ALT 23 Alkaline Phosphatase 46 Troponin I High Sens 3.3 Total Protein 8.6 H Albumin 5.1 Globulin 3.5 Albumin/Globulin Ratio 1.5 Lipase 22 PD MEDICAL DECISION MAKING - ED course ED course: 24-year-old gentleman with persistent atypical chest pain that seems anxiety related. Of note he was taking sort of a potpourri of medications which were not helpful. Work-up here consisted of an EKG, basic labs and cardiac enzymes and a CT angiogram of the chest which was negative. He did receive a Xanax here which was very helpful Departure - Departure Disposition: 01 Home, Self Care Clinical Impression: Chest pain Qualifiers: Chest pain type: unspecified Qualified Code(s): R07.9 - Chest pain, unspecified Condition: Good Record reviewed to determine appropriate education?: Yes Instructions: ED Chest Pain Atypical Unkn Cause Prescriptions: Alprazolam [Xanax] 0.5 mg PO TID PRN #15 tablet PRN Reason: Anxiety Comments: As discussed, the testing we did on your chest and heart seems very normal. It seems likely that the symptoms you are having are related to anxiety. Follow-up with your primary care physician, next available appointment. Also reasonable to re-establish with your therapist. Return for new or worsening symptoms. Do not drink or drive if you end up taking the alprazolam.
[2019-11-08] MEDS ORDERED: IOVERSOL 320 100 ML VIAL IVP ONE (17:14)
[2019-11-08] MEDS: KETOROLAC 30 MG/ML VIAL IVP STA (17:23)
[2019-11-08 17:24] LABS: BASOPHILS % (AUTO) 0.4 %; EOSINOPHILS # (AUTO) 0.1 10^3/uL (0.0-0.7); EOSINOPHILS % (AUTO) 1.3 %; HGB - HEMOGLOBIN 15.5 g/dL (14.0-18.0); LYMPHOCYTES # (AUTO) 1.5 10^3/uL (1.5-3.5); LYMPHOCYTES % (AUTO) 26.9 %; MEAN CORPUSCULAR HEMOGLOBIN 31.1 pg (27.0-31.0); MEAN CORPUSCULAR HGB CONC 35.5 g/dL (32.0-36.0); MEAN CORPUSCULAR VOLUME 87.6 fL (80.0-94.0); MEAN PLATELET VOLUME 9.7 fL (7.4-11.4); MONOCYTES # (AUTO) 0.4 10^3/uL (0.0-1.0); NEUTROPHILS # (AUTO) 3.5 10^3/uL (1.5-6.6); PLT - PLATELET COUNT 150 10^3/uL (130-450); RED BLOOD COUNT 4.99 10^6/uL (4.70-6.10); RED CELL DISTRIBUTION WIDTH 12.4 % (12.0-15.0); WHITE BLOOD COUNT 5.5 x10^3/uL (4.8-10.8)
[2019-11-08 17:37] LABS: ALBUMIN 5.1 g/dL (3.2-5.5); ALBUMIN/GLOBULIN RATIO 1.5 (1.0-2.2); CALCIUM 9.2 mg/dL (8.5-10.3); CREATININE 0.9 mg/dL (0.6-1.2); TOTAL PROTEIN 8.6 g/dL (6.7-8.2)
[2019-11-08] MEDS: IOVERSOL 320 100 ML VIAL IVP ONE (18:07)
[2019-11-08 18:36] VITALS: BP 135/90
[2019-11-08] MEDS: ALPRAZolam 0.25 MG TABLET PO STA (18:41)
--- NOTE | 2019-11-08 18:51 | CT Report ---
Reason: chest pain aorta protocol Procedure Date: 11/08/2019 Accession Number: [id number] / [id number] Procedure: CT - ANGIO CHEST W/WO CPT Code: Final Report FULL RESULT: EXAM: CT ANGIOGRAM CHEST EXAM DATE: 11/08/2019 06:06 PM. CLINICAL HISTORY: Chest pain, aorta protocol. COMPARISON: None. TECHNIQUE: Routine helical imaging was performed through the chest in the arterial phase. IV Contrast: 80 mL of Optiray 320. Reconstructions: Coronal 3-D MIP reconstructions. Sagittal and coronal. In accordance with CT protocol optimization, one or more of the following dose reduction techniques were utilized for this exam: automated exposure control, adjustment of mA and/or KV based on patient size, or use of iterative reconstructive technique. FINDINGS: Vascular Structures: Normal. No aneurysm, dissection, or significant atherosclerotic disease of the thoracic aorta or abdominal aorta. The visualized pulmonary, mesenteric, and solid organ vascular structures are also within normal limits. Lungs/Pleura: No consolidation, nodules, or edema. No effusions or pneumothorax. Mediastinum: Normal. No cardiac enlargement or adenopathy. Upper Abdomen: Unremarkable. Other: None. IMPRESSION: No evidence of aortic dissection or pulmonary embolism. No other acute findings in the chest. [facility]
== END 2019-11-08 19:15 | disposition home or self-care (01) ==
LOC: ED 16:50
DX: R07.9 Chest pain, unspecified (principal); F41.9 Anxiety disorder, unspecified; Z87.891 Personal history of nicotine dependence
CPT/HCPCS: 36415; 71275; 80053; 83690; 84484; 85025; 93005; 96374; 99284; A9270; Q9967